=== PATIENT | female | born 1985 | race Caucasian/White ===

== ENCOUNTER 2020-11-05 07:55 | Emergency (ER) | payer MEDICAID ==
[~2020-11-05] VITALS: Ht 175.3 cm; Wt 90.7 kg
[2020-11-05 07:55] VITALS: BP_SYST 128
[2020-11-05] MEDS ORDERED: ONDANSETRON 4 MG ODT TAB PO ONE (08:15)
[2020-11-05 08:36] LABS: BASOPHILS % (AUTO) 0.6 % (0.0-2.0); EOSINOPHILS # (AUTO) 0.1 K/uL (0.0-0.4); EOSINOPHILS % (AUTO) 0.9 % (0.0-4.0); HEMATOCRIT 35.9 % (36-48); LYMPHOCYTES # (AUTO) 2.4 K/uL (1.0-5.5); MEAN CORPUSCULAR HEMOGLOBIN 29 pg (27-31); MEAN CORPUSCULAR HGB CONC 33 % (32-36); MEAN CORPUSCULAR VOLUME 87 fL (79.0-98.0); MONOCYTES # (AUTO) 0.8 K/uL (0.0-1.0); MONOCYTES % (AUTO) 9.9 % (1.7-9.3); NEUTROPHILS # (AUTO) 4.9 K/uL (1.8-7.7); NEUTROPHILS % (AUTO) 59.6 % (40.0-70.0); PLATELET COUNT (AUTO) 333 K/uL (130-430); RED BLOOD CELL COUNT(AUTO) 4.13 MIL/uL (4.2-6.2); WHITE BLOOD COUNT (AUTO) 8.2 K/uL (4.8-10.8)
[2020-11-05 08:47] LABS: ANION GAP 10 (5-15); CALCIUM 8.8 mg/dL (8.4-11.0); CHLORIDE 103 mmol/L (98-107); CREATININE 0.76 mg/dL (0.55-1.30); GLUCOSE 113 mg/dL (70-99); POTASSIUM 3.8 mmol/L (3.5-5.1); SODIUM SERUM 138 mmol/L (136-145); UREA NITROGEN, BLOOD 2 mg/dL (8-21)
[2020-11-05 08:48] LABS: GFR AFRICAN AMERICAN 111 mL/min (>90)
[2020-11-05 08:53] LABS: ALANINE AMINOTRANSFERASE 73 U/L (12-78); ALBUMIN 3.7 g/dL (3.4-4.8); AMYLASE 22 U/L (0-100); ASPARTATE AMINOTRANSFERASE 41 U/L (10-37); LACTATE DEHYDROGENASE 201 U/L (81-234); LIPASE 68 U/L (73-393); TOTAL BILIRUBIN 0.3 mg/dL (0.0-1.0)
[2020-11-05 08:54] LABS: ACETAMINOPHEN < 1 ug/mL (1-30); ALCOHOL, BLOOD < 3 mg/dL (<10); INR 1.1 (0.8-1.2)
[2020-11-05 09:28] LABS: BILIRUBIN,URINE NEGATIVE (NEGATIVE); BLOOD, URINE NEGATIVE (NEGATIVE); CLARITY/URINE CLEAR (CLEAR); GLUCOSE,URINE NEGATIVE (NEGATIVE); KETONES,URINE 1+ (NEGATIVE); LEUKOCYTE ESTERASE ,URINE NEGATIVE (NEGATIVE); NITRITE, URINE NEGATIVE (NEGATIVE); PROTEIN URINE NEGATIVE (NEGATIVE); UROBILINOGEN,URINE 0.2 (0.2-1.0)
[2020-11-05 09:29] LABS: COLOR,URINE STRAW (YELLOW)
[2020-11-05 09:39] LABS: BARBITURATE, URINE NEGATIVE (NEG <=200); BENZODIAZEPINE, URINE NEGATIVE (NEG <=150); CANNABINOID, URINE NEGATIVE (NEG <=50); COCAINE, URINE NEGATIVE (NEG <=150); METHAMPHETAMINES SCREEN,URINE NEGATIVE (NEG <=500); OPIATE, URINE NEGATIVE (NEG <=100); PHENCYCLIDINE SCREEN,URINE NEGATIVE (NEG <=25); UR TRICYCLIC ANTIDEPRESSANTS NEGATIVE (NEG <=300); URINE AMPHETAMINE NEGATIVE (NEG <=500); URINE METHADONE NEGATIVE (NEG <=200); URINE OXYCODONE SCREEN NEGATIVE (NEG <=100); URINE PROPOXYPHENE SCREEN NEGATIVE (NEG <=300)
[2020-11-05] MEDS ORDERED: ONDA4TAB5 PO (10:51)
[2020-11-05] MEDS ORDERED: HYDR-4272 PO (10:51)
[2020-11-05] MEDS ORDERED: IBUP-1969 PO (10:51)
[2020-11-05 11:08] VITALS: BP_SYST 110
== END 2020-11-05 11:09 | disposition home or self-care (01) ==
LOC: SED 07:55
DX: K80.50 Calculus of bile duct without cholangitis or cholecystitis without obstruction (principal); J45.909 Unspecified asthma, uncomplicated
CPT/HCPCS: 36415; 74176; 76376; 80053; 80307; 81003; 81025; 82150; 82550; 83605; 83615; 83690; 84703; 85025; 85610; 85730; 99284; G0480; G0481; G0482; Q0162

== ENCOUNTER 2023-06-23 13:49 | Inpatient (IN) | payer MEDICAID ==
[~2023-06-23] VITALS: Ht 165.1 cm; Wt 81.6 kg
[~2023-06-23 13:49] MED LIST: HYDR-4272 PO; IBUP-1969 PO; ONDA4TAB5 PO
[2023-06-23 13:52] VITALS: BP_SYST 135; PULSE 69; RESP 16; TEMP 97.7; O2SAT 97
[2023-06-23] MEDS ORDERED: NACL 0.9% 1,000 ML IV ONE ×2 (14:45→22:00)
[2023-06-23] MEDS ORDERED: ONDANSETRON HCL 4 MG/2 ML VIAL IVP ONE (14:45)
[2023-06-23 15:14] LABS: BASOPHILS % (AUTO) 0.4 % (0.0-2.0); EOSINOPHILS # (AUTO) 0.1 K/uL (0.0-0.4); EOSINOPHILS % (AUTO) 1.1 % (0.0-4.0); HEMATOCRIT 40.1 % (36-48); HEMOGLOBIN 13.3 g/dL (12.0-16.0); LYMPHOCYTES # (AUTO) 1.5 K/uL (1.0-5.5); LYMPHOCYTES % (AUTO) 16.5 % (20.5-51.5); MEAN CORPUSCULAR HEMOGLOBIN 29 pg (27-31); MEAN CORPUSCULAR HGB CONC 33 % (32-36); MEAN CORPUSCULAR VOLUME 87 fL (79.0-98.0); MONOCYTES # (AUTO) 0.9 K/uL (0.0-1.0); MONOCYTES % (AUTO) 9.9 % (1.7-9.3); NEUTROPHILS # (AUTO) 6.6 K/uL (1.8-7.7); NEUTROPHILS % (AUTO) 72.1 % (40.0-70.0); PLATELET COUNT (AUTO) 312 K/uL (130-430); RED BLOOD CELL COUNT(AUTO) 4.63 MIL/uL (4.2-6.2); RED CELL DISTRIBUTION WIDTH 13.2 % (9.0-15.0); WHITE BLOOD COUNT (AUTO) 9.1 K/uL (4.8-10.8)
[2023-06-23 15:32] LABS: ALBUMIN 3.8 g/dL (3.4-4.8); CREATININE 0.82 mg/dL (0.55-1.30); POTASSIUM 3.6 mmol/L (3.5-5.1); TOTAL BILIRUBIN 0.3 mg/dL (0.0-1.0); TOTAL PROTEIN, SERUM 7.9 g/dL (6.4-8.3)
[2023-06-23 15:43] LABS: BILIRUBIN,URINE NEGATIVE (NEGATIVE); BLOOD, URINE NEGATIVE (NEGATIVE); CLARITY/URINE CLEAR (CLEAR); COLOR,URINE YELLOW (YELLOW); GLUCOSE,URINE NEGATIVE (NEGATIVE); KETONES,URINE NEGATIVE (NEGATIVE); LEUKOCYTE ESTERASE ,URINE NEGATIVE (NEGATIVE); NITRITE, URINE NEGATIVE (NEGATIVE); PROTEIN URINE NEGATIVE (NEGATIVE); UROBILINOGEN,URINE 0.2 (0.2-1.0)
[2023-06-23] MEDS ORDERED: METOCLOPRAMIDE HCL 10 MG/2 ML VIAL IVP ONE (17:15)
[2023-06-23 19:25] LABS: BARBITURATE, URINE NEGATIVE (NEG <=200); BENZODIAZEPINE, URINE NEGATIVE (NEG <=150); CANNABINOID, URINE POSITIVE (NEG <=50); COCAINE, URINE NEGATIVE (NEG <=150); METHAMPHETAMINES SCREEN,URINE NEGATIVE (NEG <=500); OPIATE, URINE NEGATIVE (NEG <=100); PHENCYCLIDINE SCREEN,URINE NEGATIVE (NEG <=25); UR TRICYCLIC ANTIDEPRESSANTS NEGATIVE (NEG <=300); URINE AMPHETAMINE NEGATIVE (NEG <=500); URINE METHADONE NEGATIVE (NEG <=200); URINE OXYCODONE SCREEN NEGATIVE (NEG <=100); URINE PROPOXYPHENE SCREEN NEGATIVE (NEG <=300)
[2023-06-23] MEDS ORDERED: KETOROLAC TROMETHAMINE 30 MG VIAL IM PRN (22:00)
[2023-06-23] MEDS ORDERED: ACETAMINOPHEN 325 MG TABLET PO PRN (22:00)
[2023-06-23] MEDS ORDERED: HYDROcodone/ACETAMIN 5-325 MG TAB (NORCO/ VICODIN) PO PRN (22:00)
[2023-06-23 23:25] VITALS: BP_SYST 109; PULSE 74; RESP 16; TEMP 98.1; O2SAT 98
[2023-06-24] MEDS: HYDROcodone/ACETAMIN 10-325 MG TAB PO PRN ×2 (02:12→22:59)
[2023-06-24 05:42] LABS: BASOPHILS % (AUTO) 0.3 % (0.0-2.0); EOSINOPHILS % (AUTO) 0.6 % (0.0-4.0); HEMATOCRIT 39.6 % (36-48); HEMOGLOBIN 12.8 g/dL (12.0-16.0); LYMPHOCYTES # (AUTO) 1.7 K/uL (1.0-5.5); LYMPHOCYTES % (AUTO) 21.6 % (20.5-51.5); MEAN CORPUSCULAR HEMOGLOBIN 28 pg (27-31); MEAN CORPUSCULAR HGB CONC 32 % (32-36); MEAN CORPUSCULAR VOLUME 88 fL (79.0-98.0); MONOCYTES # (AUTO) 0.8 K/uL (0.0-1.0); MONOCYTES % (AUTO) 9.8 % (1.7-9.3); NEUTROPHILS # (AUTO) 5.2 K/uL (1.8-7.7); NEUTROPHILS % (AUTO) 67.7 % (40.0-70.0); PLATELET COUNT (AUTO) 302 K/uL (130-430); RED BLOOD CELL COUNT(AUTO) 4.51 MIL/uL (4.2-6.2); RED CELL DISTRIBUTION WIDTH 13.4 % (9.0-15.0); WHITE BLOOD COUNT (AUTO) 7.7 K/uL (4.8-10.8)
[2023-06-24 06:04] LABS: ALBUMIN 3.6 g/dL (3.4-4.8); CALCIUM 8.6 mg/dL (8.4-11.0); CREATININE 0.72 mg/dL (0.55-1.30); POTASSIUM 3.6 mmol/L (3.5-5.1); TOTAL BILIRUBIN 0.5 mg/dL (0.0-1.0); TOTAL PROTEIN, SERUM 7.8 g/dL (6.4-8.3)
[2023-06-24 08:00] VITALS: BP_SYST 110; PULSE 68; RESP 16; TEMP 97.8; O2SAT 98
[2023-06-24 09:52] VITALS: O2SAT 98
[2023-06-24 12:00] VITALS: BP_SYST 127; PULSE 70; RESP 18; TEMP 98.2; O2SAT 100
[2023-06-24] MEDS ORDERED: CALCIUM CARBONATE 500 MG/ TAB.CHEW PO PRN (13:30)
[2023-06-24] MEDS: NACL 0.9% 1,000 ML IV SCH ×2 (14:40→22:59)
[2023-06-24 16:00] VITALS: BP_SYST 118; PULSE 77; RESP 16; TEMP 97.8; O2SAT 99
[2023-06-24] MEDS: ONDANSETRON HCL 4 MG/2 ML VIAL IVP PRN ×2 (16:48→22:58)
[2023-06-24 19:00] VITALS: O2SAT 100
[2023-06-24 20:00] VITALS: BP_SYST 110; PULSE 78; RESP 16; TEMP 97.6; O2SAT 100
[2023-06-24] MEDS ORDERED: CIPROFLOXACIN LACT 400 MG/D5W 200 ML IV ONE (21:36)
[2023-06-24] MEDS: CIPROFLOXACIN LACT 400 MG/D5W 200 ML IV SCH (21:46)
[2023-06-25] VITALS (7 sets, daily range): BP systolic 99–123; PULSE 62–78; RESP 16–18; TEMP 97–98.6; O2SAT 97–100
[2023-06-25 04:57] LABS: BASOPHILS % (AUTO) 0.4 % (0.0-2.0); EOSINOPHILS # (AUTO) 0.1 K/uL (0.0-0.4); HEMATOCRIT 40.9 % (36-48); HEMOGLOBIN 13.2 g/dL (12.0-16.0); LYMPHOCYTES # (AUTO) 1.9 K/uL (1.0-5.5); LYMPHOCYTES % (AUTO) 24.5 % (20.5-51.5); MEAN CORPUSCULAR HEMOGLOBIN 28 pg (27-31); MEAN CORPUSCULAR HGB CONC 32 % (32-36); MEAN CORPUSCULAR VOLUME 88 fL (79.0-98.0); MONOCYTES # (AUTO) 0.8 K/uL (0.0-1.0); MONOCYTES % (AUTO) 10.2 % (1.7-9.3); NEUTROPHILS % (AUTO) 63.9 % (40.0-70.0); PLATELET COUNT (AUTO) 285 K/uL (130-430); RED BLOOD CELL COUNT(AUTO) 4.66 MIL/uL (4.2-6.2); RED CELL DISTRIBUTION WIDTH 13.3 % (9.0-15.0); WHITE BLOOD COUNT (AUTO) 7.9 K/uL (4.8-10.8)
[2023-06-25 05:05] LABS: ALBUMIN 3.5 g/dL (3.4-4.8); CALCIUM 8.9 mg/dL (8.4-11.0); CREATININE 0.68 mg/dL (0.55-1.30); POTASSIUM 3.9 mmol/L (3.5-5.1); TOTAL BILIRUBIN 0.5 mg/dL (0.0-1.0); TOTAL PROTEIN, SERUM 7.6 g/dL (6.4-8.3)
[2023-06-25] MEDS ORDERED: HYDROcodone/ACETAMIN 5-325 MG TAB (NORCO/ VICODIN) PO PRN (06:30)
[2023-06-25] MEDS: NACL 0.9% 1,000 ML IV SCH ×2 (07:50→16:00)
[2023-06-25] MEDS: PANTOPRAZOLE SODIUM 40 MG TAB PO SCH (08:44)
[2023-06-25] MEDS: CIPROFLOXACIN LACT 400 MG/D5W 200 ML IV SCH ×2 (09:32→20:59)
[2023-06-25] MEDS ORDERED: MELATONIN 3 MG TABLET PO PRN (13:15)
[2023-06-25] MEDS ORDERED: LIDOCAINE PATCH 5% 1 EA TP ONE (13:15)
[2023-06-25] MEDS: MIRTAZAPINE 15 MG TABLET PO SCH (20:58)
[2023-06-25] MEDS: AMITRIPTYLINE HCL 10 MG TABLET (ELAVIL) PO SCH (20:58)
[2023-06-26] VITALS: BP_SYST 115; PULSE 71; RESP 18; TEMP 98.5; O2SAT 97
[2023-06-26] MEDS: NACL 0.9% 1,000 ML IV SCH ×3 (01:00→19:46)
[2023-06-26 06:21] LABS: BASOPHILS % (AUTO) 0.7 % (0.0-2.0); EOSINOPHILS # (AUTO) 0.1 K/uL (0.0-0.4); EOSINOPHILS % (AUTO) 1.9 % (0.0-4.0); HEMATOCRIT 39.7 % (36-48); HEMOGLOBIN 12.8 g/dL (12.0-16.0); LYMPHOCYTES % (AUTO) 30.1 % (20.5-51.5); MEAN CORPUSCULAR HEMOGLOBIN 28 pg (27-31); MEAN CORPUSCULAR HGB CONC 32 % (32-36); MEAN CORPUSCULAR VOLUME 88 fL (79.0-98.0); MONOCYTES # (AUTO) 0.7 K/uL (0.0-1.0); MONOCYTES % (AUTO) 9.9 % (1.7-9.3); NEUTROPHILS # (AUTO) 3.9 K/uL (1.8-7.7); NEUTROPHILS % (AUTO) 57.4 % (40.0-70.0); PLATELET COUNT (AUTO) 292 K/uL (130-430); RED BLOOD CELL COUNT(AUTO) 4.53 MIL/uL (4.2-6.2); RED CELL DISTRIBUTION WIDTH 13.2 % (9.0-15.0); WHITE BLOOD COUNT (AUTO) 6.7 K/uL (4.8-10.8)
[2023-06-26 06:52] LABS: ALBUMIN 3.3 g/dL (3.4-4.8); CALCIUM 8.6 mg/dL (8.4-11.0); CREATININE 0.77 mg/dL (0.55-1.30); POTASSIUM 3.6 mmol/L (3.5-5.1); TOTAL BILIRUBIN 0.5 mg/dL (0.0-1.0); TOTAL PROTEIN, SERUM 7.3 g/dL (6.4-8.3)
[2023-06-26 08:00] VITALS: O2SAT 99
[2023-06-26 08:12] VITALS: BP_SYST 109; PULSE 77; RESP 18; TEMP 97
[2023-06-26] MEDS ORDERED: LIDOCAINE PATCH 5% 1 EA TP SCH (09:00)
[2023-06-26] MEDS: CIPROFLOXACIN LACT 400 MG/D5W 200 ML IV SCH ×2 (09:01→22:07)
[2023-06-26] MEDS: PANTOPRAZOLE SODIUM 40 MG TAB PO SCH (09:01)
[2023-06-26 11:26] VITALS: BP_SYST 108; PULSE 81; RESP 15; TEMP 98.5; O2SAT 97
[2023-06-26 17:21] VITALS: BP_SYST 120; PULSE 77; RESP 15; TEMP 98.5; O2SAT 100
[2023-06-26] MEDS: SUCRALFATE 1 GM/10 ML UDC GT SCH (19:47)
[2023-06-26 20:00] VITALS: BP_SYST 104; PULSE 78; RESP 17; TEMP 98.8; O2SAT 100
[2023-06-26] MEDS: AMITRIPTYLINE HCL 10 MG TABLET (ELAVIL) PO SCH (21:42)
[2023-06-26] MEDS: MIRTAZAPINE 15 MG TABLET PO SCH (21:44)
[2023-06-27] VITALS (7 sets, daily range): BP systolic 110–113; PULSE 72–89; RESP 15–18; TEMP 98–98.8; O2SAT 97–100
[2023-06-27 05:11] LABS: BASOPHILS % (AUTO) 0.7 % (0.0-2.0); EOSINOPHILS # (AUTO) 0.1 K/uL (0.0-0.4); EOSINOPHILS % (AUTO) 2.2 % (0.0-4.0); HEMATOCRIT 37.2 % (36-48); LYMPHOCYTES % (AUTO) 31.7 % (20.5-51.5); MEAN CORPUSCULAR HEMOGLOBIN 28 pg (27-31); MEAN CORPUSCULAR HGB CONC 32 % (32-36); MEAN CORPUSCULAR VOLUME 87 fL (79.0-98.0); MONOCYTES # (AUTO) 0.6 K/uL (0.0-1.0); MONOCYTES % (AUTO) 9.1 % (1.7-9.3); NEUTROPHILS # (AUTO) 3.5 K/uL (1.8-7.7); NEUTROPHILS % (AUTO) 56.3 % (40.0-70.0); PLATELET COUNT (AUTO) 273 K/uL (130-430); RED BLOOD CELL COUNT(AUTO) 4.28 MIL/uL (4.2-6.2); RED CELL DISTRIBUTION WIDTH 13.2 % (9.0-15.0); WHITE BLOOD COUNT (AUTO) 6.3 K/uL (4.8-10.8)
[2023-06-27 05:33] LABS: CALCIUM 8.2 mg/dL (8.4-11.0); CREATININE 0.81 mg/dL (0.55-1.30); POTASSIUM 3.6 mmol/L (3.5-5.1)
[2023-06-27] MEDS: NACL 0.9% 1,000 ML IV SCH (05:43)
[2023-06-27 06:06] LABS: HEPATITIS A AB, IgM Negative (Negative); HEPATITIS B CORE AB, IgM Negative (Negative); HEPATITIS B SURFACE AG Negative (Negative)
[2023-06-27] MEDS: SUCRALFATE 1 GM/10 ML UDC GT SCH (06:33)
[2023-06-27 07:59] LABS: ALBUMIN 2.9 g/dL (3.4-4.8); BILIRUBIN,DIRECT 0.1 mg/dL (0.0-0.3); TOTAL BILIRUBIN 0.2 mg/dL (0.0-1.0); TOTAL PROTEIN, SERUM 6.5 g/dL (6.4-8.3)
[2023-06-27] MEDS ORDERED: MIRT-147 PO (08:28)
[2023-06-27] MEDS ORDERED: PRO40 PO (08:30)
[2023-06-27] MEDS ORDERED: DOCUSATE SODIUM 100 MG CAPSULE PO SCH (09:00)
[2023-06-27] MEDS: PANTOPRAZOLE SODIUM 40 MG TAB PO SCH (10:48)
[2023-06-28 03:07] LABS: HEPATITIS C VIRUS AB Non Reactive (Non Reactive)
== END 2023-06-27 11:58 | disposition home health service (06) ==
LOC: SED 13:49 → SMU 21:49
PROVIDERS: ADMIT Specialist; ATTEND Specialist
DX: K80.20 Calculus of gallbladder without cholecystitis without obstruction (principal); D25.9 Leiomyoma of uterus, unspecified; R74.01 Elevation of levels of liver transaminase levels; F12.90 Cannabis use, unspecified, uncomplicated; F32.9 Major depressive disorder, single episode, unspecified; Z79.891 Long term (current) use of opiate analgesic; Z79.899 Other long term (current) drug therapy
CPT/HCPCS: 36415; 71045; 76376; 76705; 78226; 80048; 80053; 80074; 80076; 80307; 81001; 81003; 82150; 83037; 83690; 85025; 96374; 96375; 99285; A9537; J0744; J2405; J2765; Q9967

== ENCOUNTER 2023-07-04 06:12 | Emergency (ER) | payer MEDICAID ==
[~2023-07-04] VITALS: Ht 167.6 cm; Wt 72.6 kg
[~2023-07-04 06:12] MED LIST changes: -IBUP-1969 PO; +MIRT-147 PO; +PRO40 PO
[2023-07-04 06:18] VITALS: BP_SYST 107; PULSE 84; RESP 18; TEMP 97.6; O2SAT 97
[2023-07-04] MEDS ORDERED: NACL 0.9% 1,000 ML IV ONE (06:45)
[2023-07-04] MEDS ORDERED: LORazepam 2 MG/ML VIAL IVP ONE (06:45)
[2023-07-04] MEDS ORDERED: KETOROLAC TROMETHAMINE 30 MG VIAL IVP ONE (06:45)
[2023-07-04 07:11] LABS: BASOPHILS % (AUTO) 0.4 % (0.0-2.0); EOSINOPHILS # (AUTO) 0.1 K/uL (0.0-0.4); EOSINOPHILS % (AUTO) 0.7 % (0.0-4.0); HEMATOCRIT 41.5 % (36-48); HEMOGLOBIN 13.4 g/dL (12.0-16.0); LYMPHOCYTES # (AUTO) 1.4 K/uL (1.0-5.5); LYMPHOCYTES % (AUTO) 15.3 % (20.5-51.5); MEAN CORPUSCULAR HEMOGLOBIN 28 pg (27-31); MEAN CORPUSCULAR HGB CONC 32 % (32-36); MEAN CORPUSCULAR VOLUME 86 fL (79.0-98.0); MONOCYTES # (AUTO) 0.5 K/uL (0.0-1.0); MONOCYTES % (AUTO) 5.1 % (1.7-9.3); NEUTROPHILS # (AUTO) 7.2 K/uL (1.8-7.7); NEUTROPHILS % (AUTO) 78.5 % (40.0-70.0); PLATELET COUNT (AUTO) 344 K/uL (130-430); RED BLOOD CELL COUNT(AUTO) 4.81 MIL/uL (4.2-6.2); RED CELL DISTRIBUTION WIDTH 13.4 % (9.0-15.0); WHITE BLOOD COUNT (AUTO) 9.2 K/uL (4.8-10.8)
[2023-07-04 07:30] LABS: CALCIUM 9.8 mg/dL (8.4-11.0); CREATININE 0.83 mg/dL (0.55-1.30); POTASSIUM 3.2 mmol/L (3.5-5.1); TOTAL BILIRUBIN 0.4 mg/dL (0.0-1.0)
[2023-07-04] MEDS ORDERED: ONDANSETRON HCL 4 MG/2 ML VIAL IVP ONE (07:30)
[2023-07-04 09:05] LABS: BILIRUBIN,URINE NEGATIVE (NEGATIVE); BLOOD, URINE NEGATIVE (NEGATIVE); CLARITY/URINE CLEAR (CLEAR); GLUCOSE,URINE NEGATIVE (NEGATIVE); KETONES,URINE 2+ (NEGATIVE); LEUKOCYTE ESTERASE ,URINE NEGATIVE (NEGATIVE); NITRITE, URINE NEGATIVE (NEGATIVE); PH,URINE 7.5 (5.0-8.0); PROTEIN URINE NEGATIVE (NEGATIVE); UROBILINOGEN,URINE 0.2 (0.2-1.0)
[2023-07-04 09:20] LABS: COLOR,URINE STRAW (YELLOW)
[2023-07-04] MEDS ORDERED: ONDA-8 TL (10:18)
[2023-07-04] MEDS ORDERED: TRAM50TA2 PO (10:18)
[2023-07-04] MEDS ORDERED: LOM2.5 PO (10:18)
[2023-07-04 10:37] VITALS: BP_SYST 106; PULSE 80; RESP 18; TEMP 98.6; O2SAT 98
== END 2023-07-04 10:27 | disposition home or self-care (01) ==
LOC: SED 06:12
DX: N83.202 Unspecified ovarian cyst, left side (principal); N83.201 Unspecified ovarian cyst, right side; R10.2 Pelvic and perineal pain; J45.909 Unspecified asthma, uncomplicated; Z79.899 Other long term (current) drug therapy
CPT/HCPCS: 99285; 96374; 76856; 96375; 96361; 80053; 81001; 83690; 85025; 36415; 81025; 81003; J1885; J2060; J2405; J7030

== ENCOUNTER 2024-03-31 02:19 | Emergency (ER) | payer MEDICAID ==
[~2024-03-31] VITALS: Ht 172.7 cm; Wt 81.6 kg
[~2024-03-31 02:19] MED LIST changes: +LOM2.5 PO; +ONDA-8 TL; +TRAM50TA2 PO
[2024-03-31 02:23] VITALS: BP_SYST 129; PULSE 86; RESP 20; TEMP 98.8; O2SAT 98
[2024-03-31 03:25] LABS: BASOPHILS # (AUTO) 0.1 K/uL (0.0-0.2); BASOPHILS % (AUTO) 0.5 % (0.0-2.0); EOSINOPHILS # (AUTO) 0.2 K/uL (0.0-0.4); HEMATOCRIT 37.6 % (36-48); HEMOGLOBIN 12.3 g/dL (12.0-16.0); LYMPHOCYTES # (AUTO) 3.4 K/uL (1.0-5.5); LYMPHOCYTES % (AUTO) 18.7 % (20.5-51.5); MEAN CORPUSCULAR HEMOGLOBIN 29 pg (27-31); MEAN CORPUSCULAR HGB CONC 33 % (32-36); MEAN CORPUSCULAR VOLUME 87 fL (79.0-98.0); MONOCYTES # (AUTO) 1.2 K/uL (0.0-1.0); MONOCYTES % (AUTO) 6.8 % (1.7-9.3); NEUTROPHILS # (AUTO) 13.1 K/uL (1.8-7.7); PLATELET COUNT (AUTO) 332 K/uL (130-430)
[2024-03-31 03:44] LABS: BILIRUBIN,URINE NEGATIVE (NEGATIVE); BLOOD, URINE NEGATIVE (NEGATIVE); CLARITY/URINE CLEAR (CLEAR); COLOR,URINE YELLOW (YELLOW); GLUCOSE,URINE NEGATIVE (NEGATIVE); KETONES,URINE NEGATIVE (NEGATIVE); LEUKOCYTE ESTERASE ,URINE NEGATIVE (NEGATIVE); NITRITE, URINE NEGATIVE (NEGATIVE); PROTEIN URINE NEGATIVE (NEGATIVE); UROBILINOGEN,URINE 0.2 (0.2-1.0)
[2024-03-31 03:52] LABS: ALANINE AMINOTRANSFERASE 46 U/L (12-78); ALBUMIN 3.6 g/dL (3.4-4.8); ANION GAP 13 (5-15); ASPARTATE AMINOTRANSFERASE 20 U/L (10-37); BILIRUBIN,DIRECT 0.1 mg/dL (0.0-0.3); CALCIUM 8.4 mg/dL (8.4-11.0); CARBON DIOXIDE 24 mmol/L (23-29); CHLORIDE 101 mmol/L (98-107); CREATININE 0.97 mg/dL (0.55-1.30); GFR AFRICAN AMERICAN 82 mL/min (>90); GLUCOSE 110 mg/dL (74-106); POTASSIUM 3.5 mmol/L (3.5-5.1); SODIUM SERUM 138 mmol/L (136-145); TOTAL BILIRUBIN 0.4 mg/dL (0.0-1.0); TOTAL PROTEIN, SERUM 7.7 g/dL (6.4-8.3); UREA NITROGEN, BLOOD 17 mg/dL (8-21)
[2024-03-31 03:54] LABS: GFR NON AFRICAN-AMERICAN 68 mL/min (>90)
[2024-03-31] MEDS: ONDANSETRON HCL 4 MG/2 ML VIAL IVP ONE (04:29)
[2024-03-31] MEDS ORDERED: KETOROLAC TROMETHAMINE 30 MG VIAL IVP ONE (04:30)
[2024-03-31] MEDS: NACL 0.9% 1,000 ML IV ONE (04:30)
[2024-03-31] MEDS: MORPHINE 2 MG/ML INJ. SYRINGE IVP ONE ×2 (05:01)
[2024-03-31] MEDS ORDERED: PRO40 PO (05:41)
[2024-03-31 06:01] VITALS: BP_SYST 129; PULSE 85; RESP 17; TEMP 97.9; O2SAT 98
== END 2024-03-31 06:01 | disposition home or self-care (01) ==
LOC: SED 02:19
DX: K29.00 Acute gastritis without bleeding (principal); M25.532 Pain in left wrist; R10.13 Epigastric pain; J45.909 Unspecified asthma, uncomplicated; Z79.899 Other long term (current) drug therapy; Z79.2 Long term (current) use of antibiotics
CPT/HCPCS: 99285; 74176; 96374; 96361; 80076; 80048; 81001; 85025; 84484; 36415; 93005; 73100; 81025; 81003; J2405; J2270; J7030